=== PATIENT | female | born 1970 | race Two or more races ===

== ENCOUNTER → 2019-03-13 | Day surgery (SDC) | payer OTHER | LOC: JRADUS 08:22 | DX: N63.21 Unspecified lump in the left breast, upper outer quadrant (principal) ==

== ENCOUNTER 2025-01-19 03:57 | Observation (INO) | payer OTHER ==
[2025-01-19 05:20] LABS: ABSOLUTE IMMATURE GRANULOCYTES 0.04 x10^3/uL (0.0-0.031); BASOPHILS # 0.04 x10^3/uL (0.01-0.08); EOSINOPHIL % 0.1 % (0.7-5.8); EOSINOPHILS # 0.01 x10^3/uL (0.04-0.36); HEMATOCRIT 42.5 % (34.1-44.9); MCHC 32.9 g/dl (32.2-35.5); MEAN PLT VOLUME 9.1 fl (9.4-12.3); MONOCYTE # 0.49 x10^3/uL (0.24-0.86); MONOCYTE % 3.2 % (4.7-12.5); PLATELET COUNT 318 x10^3/uL (182-369); RDW 13.2 % (12.3-16.6)
[2025-01-19] MEDS ORDERED: ACETAMINOPHEN INJECTION 100 ML ONE ×2 (05:27→13:09)
[2025-01-19 05:28] LABS: INR 0.95 (0.83-1.09); PROTHROMBIN TIME (PATIENT) 10.4 SEC (9.7-13.0)
[2025-01-19] MEDS ORDERED: FAMOTIDINE 20 MG/50 ML IVPB 20 MG/50 ML MG IVPB ONE (05:28)
[2025-01-19] MEDS ORDERED: ONDANSETRON 4 MG/2 ML VIAL ONE (05:28)
[2025-01-19 05:30] LABS: ACTIVATED PTT 27.1 SECONDS (25.2-36.5)
[2025-01-19] MEDS: FAMOTIDINE 20 MG/50 ML IVPB 20 MG/50 ML MG IVPB ONE (05:37)
[2025-01-19] MEDS: ONDANSETRON 4 MG/2 ML VIAL IVPB ONE (05:37)
[2025-01-19] MEDS: SODIUM CHLORIDE 0.9% 500 ML INFUS.BAG IV ONE (05:37)
[2025-01-19] MEDS: ACETAMINOPHEN 1000 MG/100 ML BAG IVPB ONE (05:37)
[2025-01-19 05:39] LABS: POTASSIUM 4.2 mmol/L (3.5-5.1)
[2025-01-19 05:41] LABS: BLOOD UREA NITROGEN 10.6 mg/dL (7-18); CALCIUM 9.3 mg/dL (8.5-10.1)
[2025-01-19 05:42] LABS: ALBUMIN 3.9 g/dl (3.4-5.0); MAGNESIUM 1.9 mg/dL (1.8-2.4)
[2025-01-19 05:44] LABS: CREATININE 0.6 mg/dL (0.55-1.3)
[2025-01-19 05:46] LABS: BILIRUBIN,TOTAL 0.5 mg/dL (0.2-1); PHOSPHOROUS 2.6 mg/dL (2.5-4.9); TOT PROT 7.6 g/dl (6.4-8.2)
[2025-01-19 06:48] LABS: URINE APPEARANCE CLEAR; URINE BILIRUBIN NEGATIVE (NEGATIVE); URINE COLOR YELLOW; URINE GLUCOSE (UA) NEGATIVE (NEGATIVE); URINE KETONE NEGATIVE (NEGATIVE); URINE LEUK ESTERASE NEGATIVE (NEGATIVE); URINE NITRITE NEGATIVE (NEGATIVE); URINE PROTEIN NEGATIVE (NEGATIVE); URINE UROBILINOGEN 0.2 mg/dL (0.2-1.0)
[2025-01-19] MEDS ORDERED: morphine SULFATE 4 MG/ML VIAL ONE (09:20)
[2025-01-19] MEDS: morphine CARPU-JECT 4 MG/1 ML DISP.SYRIN IVPUSH ONE (09:32)
[2025-01-19] MEDS ORDERED: PIPERACILLIN/TAZOB 4.5 GM 4.5 GM/100 ML BAG IVPB ONE (09:48)
[2025-01-19] MEDS: PIPERACILLIN/TAZOB 4.5 GM 4.5 GM in DEXTROSE 5%-WATER 100 ML IVPB ONE (10:08)
[2025-01-19] MEDS ORDERED: ONDANSETRON 4 MG/2 ML VIAL IVPUSH PRN (10:19)
[2025-01-19] MEDS: SODIUM CHLORIDE 1,000 ML IV SCH (11:26)
[2025-01-19] MEDS: PIPERACILLIN/TAZOB 3.375 GM 3.375 GM in DEXTROSE 5%-WATER - 50 ML IVPB SCH (11:38)
[2025-01-19] MEDS: ACETAMINOPHEN 1000 MG/100 ML BAG IVPB PRN (13:43)
[2025-01-19] MEDS ORDERED: PIPERACILLIN/TAZOB 3.375 GM 3.375 GM in DEXTROSE 5%-WATER - 50 ML IVPB SCH (19:00)
[2025-01-19] MEDS: PIPERACILLIN/TAZOB 3.375 GM 50 ML IVPB SCH (19:07)
[2025-01-19] MEDS: SENNOSIDES 8.8 MG/5 ML SYRUP PO SCH (22:07)
[2025-01-19] MEDS: POLYETHYLENE GLYCOL (HEALTHYLAX) 3350 17 GM PACKET PO SCH (22:07)
[2025-01-20 09:23] LABS: HEMATOCRIT 35.4 % (34.1-44.9); HEMOGLOBIN 11.7 g/dL (11.2-15.7); MCHC 33.1 g/dl (32.2-35.5); MEAN CELL VOLUME 91.2 fl (79.4-94.8); MEAN PLT VOLUME 9.6 fl (9.4-12.3); PLATELET COUNT 263 x10^3/uL (182-369); RDW 13.5 % (12.3-16.6)
[2025-01-20 09:36] VITALS: BP 118/78; PULSE 88; RESP 18; TEMP 99
[2025-01-20 09:41] LABS: POTASSIUM 3.5 mmol/L (3.5-5.1)
[2025-01-20 09:49] LABS: BLOOD UREA NITROGEN 9.9 mg/dL (7-18); CALCIUM 8.5 mg/dL (8.5-10.1)
[2025-01-20 09:50] LABS: MAGNESIUM 2.1 mg/dL (1.8-2.4)
[2025-01-20 09:52] LABS: ALBUMIN 3.1 g/dl (3.4-5.0)
[2025-01-20 09:53] LABS: CREATININE 0.5 mg/dL (0.55-1.3); PHOSPHOROUS 2.3 mg/dL (2.5-4.9)
[2025-01-20 09:54] LABS: BILIRUBIN,TOTAL 1.5 mg/dL (0.2-1); TOT PROT 6.4 g/dl (6.4-8.2)
[2025-01-20] MEDS: traMADol HCL 50 MG TABLET PO PRN (11:27)
[2025-01-20 14:39] VITALS: BMI 29.5
== END 2025-01-20 14:23 | disposition left against medical advice (07) ==
LOC: JER 03:57 → INTOOBSV 09:21 → UNDOADMOB 09:21 → JERBED 09:21 → J8W 16:16
PROVIDERS: ADMIT Student in an Organized Health Care Education/Training Program; ATTEND Nurse Practitioner Family
PROC: 3E033NZ Introduction of Analgesics, Hypnotics, Sedatives into Peripheral Vein, Percutaneous Approach (ICD-10-PCS; principal; 2025-01-19)
PROC: 3E033GC Introduction of Other Therapeutic Substance into Peripheral Vein, Percutaneous Approach (ICD-10-PCS; 2025-01-19)
PROC: 3E03329 Introduction of Other Anti-infective into Peripheral Vein, Percutaneous Approach (ICD-10-PCS; 2025-01-19)
PROC: 3E0337Z Introduction of Electrolytic and Water Balance Substance into Peripheral Vein, Percutaneous Approach (ICD-10-PCS; 2025-01-19)
DX: R10.84 Generalized abdominal pain (principal); D25.9 Leiomyoma of uterus, unspecified; D72.829 Elevated white blood cell count, unspecified
CPT/HCPCS: 36415; 74019-TC-FY; 74177-TC; 80053; 81003; 83605; 83690; 83735; 84100; 85025; 85027; 85610; 85730; 86850; 86900; 86901; 87040; 87086; 93005; 93010; 96365; 96366; 96367; 96375; 96376; 99285-25; G0378; J0131; Q9967

== ENCOUNTER 2025-04-09 05:39 | Inpatient (IN) | payer OTHER ==
[2025-04-06 08:37] VITALS: BMI 28.4
[~2025-04-09 05:39] MED LIST: GABAPENTIN 300 MG CAPSULE PO ONE; PHENAZOPYRIDINE HCL 100 MG TABLET (FP) PO ONE
[2025-04-09] MEDS ORDERED: GABAPENTIN 300 MG CAPSULE ONE (08:48)
[2025-04-09] MEDS ORDERED: PHENAZOPYRIDINE HCL 100 MG TABLET (FP) ONE (08:48)
[2025-04-09] MEDS: GABAPENTIN 300 MG CAPSULE PO ONE (08:55)
[2025-04-09] MEDS: PHENAZOPYRIDINE HCL 100 MG TABLET (FP) PO ONE (08:55)
[2025-04-09] MEDS ORDERED: oxyCODONE HCL 5 MG TABLET PO PRN ×3 (11:23→14:19)
[2025-04-09] MEDS ORDERED: ONDANSETRON 4 MG/2 ML VIAL IVPUSH PRN ×2 (11:23→14:19)
[2025-04-09] MEDS ORDERED: PROPOFOL 20 ML ONE (11:45)
[2025-04-09] MEDS ORDERED: ROCURONIUM BROMIDE 50 MG/5 ML SYRINGE ONE ×2 (11:46→12:00)
[2025-04-09] MEDS ORDERED: MIDAZOLAM HCL 2 MG/2 ML SINGLE DOSE VIAL ONE (11:47)
[2025-04-09] MEDS: ceFAZolin 2 GRAM PREMIX BAG IVPB ONE (11:55)
[2025-04-09] MEDS ORDERED: HYDROmorphone HCl 2 MG/ML VIAL ONE (11:57)
[2025-04-09] MEDS ORDERED: LIDOCAINE HCL/PF 2% SDV 5ML VIAL ONE (11:57)
[2025-04-09] MEDS ORDERED: ceFAZolin SODIUM 1 GM VIAL ONE (11:57)
[2025-04-09] MEDS ORDERED: DEXAMETHASONE SOD PHOSPHATE 4 MG/1 ML VIAL ONE (11:57)
[2025-04-09] MEDS ORDERED: DEXMEDETOMIDINE HCL 200 MCG/2 ML IVPB ONE (12:18)
[2025-04-09] MEDS ORDERED: ACETAMINOPHEN INJECTION 100 ML ONE (12:18)
[2025-04-09] MEDS ORDERED: SUGAMMADEX SODIUM 200 MG/2 ML VIAL ONE (13:03)
[2025-04-09] MEDS ORDERED: KETOROLAC TROMETHAMINE 30 MG/1 ML VIAL ONE (13:39)
[2025-04-09] MEDS ORDERED: BISACODYL 5 MG TABLET.DR (FP) PO PRN (14:19)
[2025-04-09] MEDS ORDERED: DOCUSATE SODIUM 100 MG CAPSULE (FP) PO PRN (14:19)
[2025-04-09] MEDS: LACTATED RINGERS SOLUTION 1,000 ML IV SCH (15:19)
[2025-04-09 17:22] VITALS: RESP 18
[2025-04-09 17:55] LABS: HEMATOCRIT 36.8 % (34.1-44.9); HEMOGLOBIN 12.3 g/dL (11.2-15.7); MCHC 33.4 g/dl (32.2-35.5); MEAN CELL VOLUME 91.1 fl (79.4-94.8); MEAN PLT VOLUME 9.5 fl (9.4-12.3); PLATELET COUNT 262 x10^3/uL (182-369); RDW 13.2 % (12.3-16.6)
[2025-04-09 18:16] LABS: POTASSIUM 4.1 mmol/L (3.5-5.1)
[2025-04-09 18:18] LABS: BLOOD UREA NITROGEN 6.6 mg/dL (7-18); CALCIUM 9.1 mg/dL (8.5-10.1)
[2025-04-09 18:20] LABS: CREATININE 0.5 mg/dL (0.55-1.3)
[2025-04-09] MEDS: CEFAZOLIN 1 GM/D5W 1 GM/50 ML BAG IVPB SCH (20:14)
[2025-04-09] MEDS: ACETAMINOPHEN 1000 MG/100 ML BAG IVPB SCH (20:15)
[2025-04-09] MEDS: IBUPROFEN 800 MG/8 ML IJ IVPB SCH (22:40)
[2025-04-10 08:04] LABS: HEMOGLOBIN 10.8 g/dL (11.2-15.7); MCHC 32.7 g/dl (32.2-35.5); MEAN CELL VOLUME 90.7 fl (79.4-94.8); MEAN PLT VOLUME 9.5 fl (9.4-12.3); PLATELET COUNT 234 x10^3/uL (182-369); RDW 13.3 % (12.3-16.6)
[2025-04-10 08:23] LABS: POTASSIUM 4.1 mmol/L (3.5-5.1)
[2025-04-10 08:27] LABS: CALCIUM 8.5 mg/dL (8.5-10.1)
[2025-04-10 08:28] LABS: BLOOD UREA NITROGEN 8.1 mg/dL (7-18)
[2025-04-10 08:31] LABS: CREATININE 0.4 mg/dL (0.55-1.3)
[2025-04-10] MEDS: ENOXAPARIN NA (PORCINE) 40 MG/0.4 ML DISP.SYRIN SQ SCH (09:26)
[2025-04-10] MEDS: SIMETHICONE 80 MG TAB.CHEW (FP) PO PRN (09:27)
[2025-04-10] MEDS: IBUPROFEN 600 MG TABLET (FP) PO PRN (18:12)
[2025-04-11] MEDS: ACETAMINOPHEN 500 MG TABLET (FP) PO PRN (09:20)
[2025-04-11 10:00] VITALS: BP 112/67; PULSE 80; TEMP 98.2
== END 2025-04-11 10:40 | disposition home or self-care (01) | DRG 519 ==
LOC: J2C 05:39 → J3W 16:31
PROVIDERS: ADMIT Obstetrics & Gynecology; ATTEND Obstetrics & Gynecology
PROC: 0UT70ZZ Resection of Bilateral Fallopian Tubes, Open Approach (ICD-10-PCS; 2025-04-09)
PROC: 0UB00ZZ Excision of Right Ovary, Open Approach (ICD-10-PCS; 2025-04-09)
PROC: 0UT90ZZ Resection of Uterus, Open Approach (ICD-10-PCS; principal; 2025-04-09 10:15)
DX: D25.9 Leiomyoma of uterus, unspecified (principal); N83.201 Unspecified ovarian cyst, right side
CPT/HCPCS: 36415; 80048; 81025; 85027; 86850; 86900; 86901; 88305-TC; 88307-TC; 94010; 94760